=== PATIENT | male | born 1965 | race Hispanic/Latino ===

== ENCOUNTER 2022-01-22 20:10 | Emergency (ER) | payer MEDICARE ==
[2022-01-22] MEDS ORDERED: SODIUM CHLORIDE 0.9% 500 ML 500 ML IV ONE (20:34)
[2022-01-22] MEDS ORDERED: MORPHINE 4 MG/1 ML INJ IV ONE (20:34)
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
[2022-01-22 21:13] LABS: Basophils % (Auto) 0.4 % (0.0-1.8); Eosinophils # (Auto) 0.1 K/mm3 (0.0-0.4); Eosinophils % (Auto) 1.8 % (0.0-4.3); Hematocrit 43.8 % (35.5-45.6); Hemoglobin 14.6 gm/dl (11.8-15.2); Lymphocytes % (Auto) 24.1 % (13.4-35.0); Mean Corpuscular HGB Conc 33 % (32-34); Mean Corpuscular Volume 89 fl (84-94); Monocytes # (Auto) 0.7 K/mm3 (0.0-0.8); Monocytes % (Auto) 8.9 % (0.0-7.3); Platelet Count 424 K/mm3 (140-440); Red Blood Count 4.94 M/mm3 (3.65-5.03); Red Cell Distribution Width 16.3 % (13.2-15.2)
[2022-01-22 21:29] LABS: INR 0.98 (0.87-1.13)
[2022-01-22 21:34] LABS: Alanine Aminotransferase 12 units/L (7-56); Albumin 4.6 g/dL (3.9-5); Blood Urea Nitrogen 15 mg/dL (9-20); Calcium 10.6 mg/dL (8.4-10.2); Hemolysis Index 8
[2022-01-22 21:58] LABS: BUN/Creatinine Ratio 21
[2022-01-22] MEDS ORDERED: MORPHINE 2 MG/1 ML INJ IV ONE (22:32)
--- NOTE | 2022-01-22 22:36 | Emergency Department Report ---
ED Chest Pain HPI - General Chief Complaint: Chest Pain Stated Complaint: CHEST PAIN Time Seen by Provider: 01/22/22 20:26 Source: EMS Mode of arrival: Stretcher Limitations: Physical Limitation - History of Present Illness Initial Comments: Pt came in from [facility] with complain of chest pain 06/30, was given 2 doses of nitro, EMS gave ASA 324mg po. MD Complaint: chest pain -: hour(s) Pain Location: left chest Pain Radiation: none Severity scale (0 -10): 8 Quality: aching Consistency: intermittent Improves With: nothing re: nausea - Related Data On Oral Contraceptives: No Allergies Allergy/AdvReac Type Severity Reaction Status Date / Time hydrocodone Allergy Unknown Verified 01/22/22 20:21 tramadol Allergy Unknown Verified 01/22/22 20:21 Heart Score - HEART Score History: Slightly suspicious EKG: Non-specific Age: 45-65 Risk factors: > 3 risk factors or hx of atherosclerotic disease Troponin: < normal limit HEART Score: 4 - EKG Read Time Time EKG Completed: 20:30 EKG Read Time: 20:30 ED Review of Systems ROS: Stated complaint: CHEST PAIN Other details as noted in HPI Constitutional: denies: chills, fever Eyes: denies: eye pain, eye discharge, vision change ENT: denies: ear pain, throat pain Respiratory: denies: cough, shortness of breath, wheezing Cardiovascular: denies: chest pain, palpitations Endocrine: no symptoms reported Gastrointestinal: denies: abdominal pain, nausea, diarrhea Genitourinary: denies: urgency, dysuria Musculoskeletal: denies: back pain, joint swelling, arthralgia Skin: denies: rash, lesions Neurological: denies: headache, weakness, paresthesias Psychiatric: denies: anxiety, depression Hematological/Lymphatic: denies: easy bleeding, easy bruising ED Past Medical Hx - Past Medical History Previous Medical History?: Yes Hx Hypertension: Yes Hx CVA: Yes (LEFT SIDE DEFICIT) Hx Heart Attack/AMI: Yes (2018, WITH STENTS 2) Hx GERD: Yes Hx Psychiatric Treatment: Yes (BIPOLAR) Hx Asthma: Yes Hx COPD: Yes - Surgical History Past Surgical History?: Yes Additional Surgical History: WITH 2 STENTS - Social History Smoking Status: Former Smoker Substance Use Type: None ED Physical Exam - General Limitations: Physical Limitation General appearance: alert, in no apparent distress - Head Head exam: Present: atraumatic, normocephalic - Eye Eye exam: Present: normal appearance - ENT ENT exam: Present: mucous membranes moist - Neck Neck exam: Present: normal inspection - Respiratory Respiratory exam: Present: normal lung sounds bilaterally. Absent: respiratory distress - Cardiovascular Cardiovascular Exam: Present: regular rate, normal rhythm. Absent: systolic murmur, diastolic murmur, rubs, gallop - GI/Abdominal GI/Abdominal exam: Present: soft, normal bowel sounds - Rectal Rectal exam: Present: deferred - Extremities Exam Extremities exam: Present: normal inspection - Back Exam Back exam: Present: normal inspection - Neurological Exam Neurological exam: Present: alert, oriented X3 - Psychiatric Psychiatric exam: Present: normal affect, normal mood - Skin Skin exam: Present: warm, dry, intact, normal color. Absent: rash ED Course Vital Signs 01/22/22 01/22/22 01/22/22 20:24 20:34 20:46 Temperature Pulse Rate 76 71 Respiratory 18 14 Rate Blood Pressure 133/84 Blood Pressure 114/70 [Left] O2 Sat by Pulse 98 71 L 99 Oximetry 01/22/22 01/22/22 01/22/22 20:47 21:00 21:02 Temperature 97.8 F Pulse Rate 73 65 Respiratory 16 18 Rate Blood Pressure 127/80 Blood Pressure 127/80 [Left] O2 Sat by Pulse 98 99 99 Oximetry 01/22/22 01/22/22 01/22/22 21:05 21:16 21:30 Temperature Pulse Rate 59 L 58 L Respiratory 18 13 13 Rate Blood Pressure 127/80 132/80 Blood Pressure [Left] O2 Sat by Pulse 100 100 Oximetry - Reevaluation(s) Reevaluation #1: 01/22/22 22:33 work up neg vss , pain controlled pt thinks itis anxiety and wants more morphine ED Medical Decision Making - Lab Data Result diagrams: 01/22/22 20:45 01/22/22 20:45 - EKG Data -: EKG Interpreted by Me EKG shows normal: sinus rhythm Rate: normal - EKG Data Interpretation: other (lateral infacrts old ) Critical care attestation.: If time is entered above; I have spent that time in minutes in the direct care of this critically ill patient, excluding procedure time. ED Disposition Clinical Impression: Chest pain Disposition: 01 HOME / SELF CARE / HOMELESS Is pt being admited?: No Does the pt Need Aspirin: No Condition: Stable Instructions: Nonspecific Chest Pain, Adult
[2022-01-23 11:55] VITALS: BP 118/63
--- NOTE | 2022-01-24 11:48 | Electrocardiograph Report ---
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
== END 2022-01-23 12:06 ==
LOC: ED 20:10
DX: R07.89 Other chest pain (principal); I10 Essential (primary) hypertension; K21.9 Gastro-esophageal reflux disease without esophagitis; J44.9 Chronic obstructive pulmonary disease, unspecified; Z87.891 Personal history of nicotine dependence; Z88.6 Allergy status to analgesic agent; Z88.8 Allergy status to other drugs, medicaments and biological substances; Z79.899 Other long term (current) drug therapy
CPT/HCPCS: 36415; 71045; 80053; 82550; 83690; 84484; 85025; 85610; 93005; 93010; 96361; 96374; 96376; 99284; J2270; J7040

== ENCOUNTER 2022-02-04 15:45 | Emergency (ER) | payer MEDICARE ==
[2022-02-04] MEDS ORDERED: HALOPERIDOL LACTATE 5 MG/1 ML INJ IM PRN (16:45)
[2022-02-04] MEDS ORDERED: TETANUS,DIPH,PERTUSS(ACELL) VACCINE 0.5 ML SYRINGE IM ONE (16:45)
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
[2022-02-04] MEDS: LORazepam 2 MG/ML VIAL IM PRN (17:44)
[2022-02-04 18:16] LABS: Hematocrit 34.9 % (35.5-45.6); Hemoglobin 12.1 gm/dl (11.8-15.2); Mean Corpuscular HGB Conc 35 % (32-34); Mean Corpuscular Volume 89 fl (84-94); Platelet Count 441 K/mm3 (140-440); Red Blood Count 3.92 M/mm3 (3.65-5.03); Red Cell Distribution Width 16.5 % (13.2-15.2)
[2022-02-04 18:26] LABS: INR 0.88 (0.87-1.13)
[2022-02-04 18:39] LABS: Alanine Aminotransferase 37 units/L (7-56); Blood Urea Nitrogen 13 mg/dL (9-20); Calcium 9.5 mg/dL (8.4-10.2); Hemolysis Index 3
[2022-02-04 18:41] LABS: BUN/Creatinine Ratio 22
[2022-02-04] MEDS ORDERED: ACETAMINOPHEN 325 MG TAB PO PRN (19:35)
[2022-02-04] MEDS ORDERED: ONDANSETRON 4 MG ODT TAB PO PRN (19:35)
[2022-02-04] MEDS ORDERED: PANTOPRAZOLE 20 MG TAB PO PRN (19:35)
[2022-02-05 07:59] LABS: Amphetamine Screen,Urine Negative; Benzodiazepines Screen,Urine Negative; Cannabinoid Screen,Urine Negative; Cocaine Screen,Urine Negative; Methadone Screen,Urine Negative; Opiate Screen,Urine Negative
[2022-02-05 08:06] LABS: Bilirubin,Urine NEG (Negative); Blood,Urine NEG (Negative); Color,Urine Yellow (Yellow); Mucus,Urine 1+ /HPF; Protein,Urine <15 mg/dL mg/dL (Negative); Urobilinogen,Urine < 2.0 mg/dL (<2.0)
[2022-02-05 08:53] VITALS: BP 143/89
[2022-02-05] MEDS: LORazepam 2 MG/ML VIAL IM PRN (10:00)
--- NOTE | 2022-02-05 11:23 | Consultation ---
History of Present Illness - Reason for Consult Consult date: 02/05/22 Reason for consult: Suicidal attempt - History of Present Psychiatric Illness ED Note: The patient is a 56-year-old gentleman. His primary care doctor is Dr. Syed. His past medical history includes atherosclerotic heart disease, weakness, Hernandez's esophagus, COPD, history of stroke with left-sided hemiplegia, protein calorie malnutrition, hypertension, schizophrenia, bipolar, obsessive-compulsive disorder, and GERD, as well as hyperlipidemia. The patient presents to the ER today with an EMS articulated complaint of probable drug- seeking and suicide attempt. As per EMS, the patient inflicted a superficial wound to the volar aspect of [facility] left distal [facility]. 911 was thus activated. EMS reports stable vital signs in the field, and that the patient endorsed no complaints in the field per se, but made multiple requests for pain medication, and intravenous Ativan.The patient was also seen for chest pain at this hospital a few weeks ago. In the emergency room, the patient complains of constant anterior nonrating not exertional chest pain, which is not associate with vomiting, diaphoresis or exertional shortness of breath. He is requesting intravenous Ativan. He denies headache, neck pain, abdominal pain, vomiting, diaphoresis, posterior leg pain or leg swelling. He will not comment on whether or not he is homicidal at this time. The patient is a 56 year old male with history of schizophrenia, bipolar, obsessive-compulsive disorder who presents to the ED with suicidal attempt. In my interview with the patient, he is depressed and anxious. The patient reports that he tried to cut his wrist last night " my adrenaline keeps going so bad and I can't be still." When asked about recent stressors, he states he was in the process of moving to another nursing home and that his mother was supposed to be visiting. The patient presents as med seeking asking for Ativan injection. He denies any current suicidal/homicidal ideation and denies hallucinations. PAST PSYCHIATRIC HISTORY Diagnoses: schizophrenia, Bipolar, OCD Suicide attempts or Self-harm behavior: Yes Prior psychiatric hospitalizations: Yes Substance Abuse history: Alcohol Previous psychiatric medications tried: Seroquel, Thibodaux Outpatient treatment: Unknown SOCIAL HISTORY Marital Status: Single Living Arrangements: nursing home Employment Status: Unemployed Access to guns/weapons: Denied Education: some college History of Abuse: Denied Legal History: None reported REVIEW OF SYSTEMS Constitutional: Negative for weight loss ENT: Negative for stridor Respiratory: Negative for cough or hemoptysis All other systems reviewed and are negative MENTAL STATUS EXAMINATION General Appearance and Behavior: Age appropriate, dressed appropriately, anxious and cooperative Cooperation: cooperative Psychomotor Behavior: psychomotor normal Mood: Depressed, anxious Affect and affective range: Congruent with states mood Thought Process: goal oriented Thought Content: Reality oriented Speech: Normal volume, Regular rate and rhythm, Intellectual Functioning: Average Suicidal Ideation: Denies Homicidal Ideation: Denies Hallucinations: Denies Delusions: None elicited Impulse Control: Unimpaired Insight and Judgment: limited insight and judgment, Memory: Normal Attention: divided Orientation: Alert, oriented Assessment and Plan (1)Bipolar (2) Treatment plan 1013 Continue previous prescribed meds Start Seroquel 100mg po BID Start Th[place]od[place] 300mg po BID Start Vistaril 25mg po TID Risks, benefits and alternatives of medications discussed with the patient, questions answered and consent obtained from patient. PSYCHOTHERAPY: Supportive psychotherapy provided MEDICAL: Per primary team DELIRIUM PRECAUTIONS: Please re-orient patient frequently, keep lights on during the day, and minimize benzodiazepines and opiates as these medications could worsen patient's confusion. 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 Will follow. Thank you for the consult. Please contact with any questions and/or concerns. Case staffed with Dr. Toledo Medications and Allergies Allergies Allergy/AdvReac Type Severity Reaction Status Date / Time hydrocodone Allergy Unknown Verified 01/23/22 01:15 tramadol Allergy Unknown Verified 01/23/22 01:15 Active Meds: Active Medications Acetaminophen (Acetaminophen 325 Mg Tab) 650 mg PO Q6HR PRN PRN Reason: PAIN Haloperidol Lactate (Haloperidol Lactate 5 Mg/1 Ml Inj) 5 mg IM Q6HR PRN PRN Reason: Agitation Last Admin: 02/04/22 17:41 Dose: 5 mg Lorazepam (Lorazepam 2 Mg/Ml Vial) 2 mg IM Q4HR PRN PRN Reason: Agitation Last Admin: 02/05/22 10:00 Dose: 2 mg Ondansetron HCl (Ondansetron 4 Mg Odt Tab) 4 mg PO Q6HR PRN PRN Reason: Nausea Pantoprazole Sodium (Pantoprazole 20 Mg Tab) 20 mg PO BID PRN PRN Reason: Dyspepsia Mental Status Exam - Vital signs Last Vital Signs Temp 97.2 F L 02/05/22 08:52 Pulse 99 H 02/05/22 08:52 Resp 20 02/05/22 08:52 BP 143/89 02/05/22 08:52 Pulse Ox 97 02/05/22 08:53 Results Result Diagrams: 02/04/22 18:00 02/04/22 18:00 Abnormal lab results 02/04/22 02/04/22 02/04/22 Range/Units 18:00 18:00 18:00 Hct 34.9 L (35.5-45.6) % MCHC 35 H (32-34) % RDW 16.5 H (13.2-15.2) % Plt Count 441 H (140-440) K/mm3 Creatinine 0.6 L (0.8-1.3) mg/dL Alkaline Phosphatase 168 H (35-129) units/L Salicylates < 0.3 L (2.8-20.0) mg/dL Acetaminophen (10.0-30.0) ug/mL 02/04/22 Range/Units 18:00 Hct (35.5-45.6) % MCHC (32-34) % RDW (13.2-15.2) % Plt Count (140-440) K/mm3 Creatinine (0.8-1.3) mg/dL Alkaline Phosphatase (35-129) units/L Salicylates (2.8-20.0) mg/dL Acetaminophen 5.0 L (10.0-30.0) ug/mL All other labs normal.
[2022-02-05] MEDS ORDERED: QUEtiapine 100 MG TAB PO SCH (12:00)
[2022-02-05] MEDS ORDERED: LITHIUM CARBONATE 300 MG CAP PO SCH (12:00)
--- NOTE | 2022-02-05 12:06 | Event Note ---
Date: 02/05/22 medically cleared vss , no distress accepted to inpatient psych
[2022-02-05] MEDS ORDERED: hydrOXYzine PAMOATE 25 MG CAP PO SCH (14:00)
--- NOTE | 2022-02-05 19:25 | Electrocardiograph Report ---
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
--- NOTE | 2022-02-08 08:27 | Electrocardiograph Report ---
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
== END 2022-02-05 14:20 ==
LOC: ED 15:45
DX: S60.812A Abrasion of left wrist, initial encounter (principal); R07.9 Chest pain, unspecified; F20.9 Schizophrenia, unspecified; Z13.30 Encounter for screening examination for mental health and behavioral disorders, unspecified; Z20.822 Contact with and (suspected) exposure to COVID-19; I10 Essential (primary) hypertension; Z88.5 Allergy status to narcotic agent; X58.XXXA Exposure to other specified factors, initial encounter; Y93.89 Activity, other specified; Y92.89 Other specified places as the place of occurrence of the external cause; Y99.8 Other external cause status
CPT/HCPCS: 36415; 71046; 80053; 80307; 81001; 84484; 85027; 85610; 90471; 90715; 93005; 96372; 99285; J1630; J2060; U0003; 80320; G0480

== ENCOUNTER 2022-02-05 17:00 | Emergency (ER) | payer MEDICARE ==
--- NOTE | 2022-02-05 18:54 | Emergency Department Report ---
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 Denies any SI or HI today Place: home Alledged Intoxication: No Compliant with Home Medications: No Treatments Prior to Arrival: none Allergies/Adverse reactions: Allergies Allergy/AdvReac Type Severity Reaction Status Date / Time hydrocodone Allergy Unknown Verified 02/05/22 11:39 tramadol Allergy Unknown Verified 02/05/22 11:39 ED Review of Systems ROS: Stated complaint: MH Other details as noted in HPI Constitutional: denies: chills, fever Eyes: denies: eye pain, eye discharge, vision change ENT: denies: ear pain, throat pain Respiratory: denies: cough, shortness of breath, wheezing Cardiovascular: denies: chest pain, palpitations Endocrine: no symptoms reported Gastrointestinal: denies: abdominal pain, nausea, diarrhea Genitourinary: denies: urgency, dysuria Musculoskeletal: denies: back pain, joint swelling, arthralgia Skin: denies: rash, lesions Neurological: denies: headache, weakness, paresthesias Psychiatric: denies: anxiety, depression Hematological/Lymphatic: denies: easy bleeding, easy bruising ED Past Medical Hx - Past Medical History Hx Hypertension: Yes Hx CVA: Yes (LEFT SIDE DEFICIT) Hx Heart Attack/AMI: Yes (2018, WITH STENTS 2) Hx GERD: Yes Hx Psychiatric Treatment: Yes ([facility]) Hx Asthma: Yes Hx COPD: Yes - Surgical History Additional Surgical History: WITH 2 STENTS - Social History Smoking Status: Former Smoker Substance Use Type: None ED Physical Exam - General General appearance: alert, in no apparent distress - Head Head exam: Present: atraumatic, normocephalic - Eye Eye exam: Present: normal appearance - ENT ENT exam: Present: mucous membranes moist - Neck Neck exam: Present: normal inspection - Respiratory Respiratory exam: Present: normal lung sounds bilaterally. Absent: respiratory distress - Cardiovascular Cardiovascular Exam: Present: regular rate, normal rhythm. Absent: systolic murmur, diastolic murmur, rubs, gallop - GI/Abdominal GI/Abdominal exam: Present: soft, normal bowel sounds - Rectal Rectal exam: Present: deferred - Extremities Exam Extremities exam: Present: normal inspection - Back Exam Back exam: Present: normal inspection - Neurological Exam Neurological exam: Present: alert, oriented X3 - Psychiatric Psychiatric exam: Absent: depressed, homicidal ideation, suicidal ideation - Skin Skin exam: Present: warm, dry, intact, normal color. Absent: rash ED Medical Decision Making - Medical Decision Making pt was awake and alert vss, no distress, [facility] back to his [facility] ED Disposition Clinical Impression: Medical clearance for psychiatric admission Disposition: HOME / SELF CARE / HOMELESS Is pt being admited?: No Does the pt Need Aspirin: No Condition: Stable Instructions: Medical Screening Exam
[2022-02-05 19:52] LABS: Basophils % (Auto) 0.3 % (0.0-1.8); Eosinophils # (Auto) 0.1 K/mm3 (0.0-0.4); Eosinophils % (Auto) 0.9 % (0.0-4.3); Hemoglobin 13.1 gm/dl (11.8-15.2); Lymphocytes # (Auto) 1.9 K/mm3 (1.2-5.4); Lymphocytes % (Auto) 17.7 % (13.4-35.0); Mean Corpuscular HGB Conc 36 % (32-34); Mean Corpuscular Volume 87 fl (84-94); Monocytes # (Auto) 0.9 K/mm3 (0.0-0.8); Monocytes % (Auto) 8.8 % (0.0-7.3); Platelet Count 466 K/mm3 (140-440); Red Blood Count 4.25 M/mm3 (3.65-5.03); Red Cell Distribution Width 16.4 % (13.2-15.2)
[2022-02-05 20:07] LABS: BUN/Creatinine Ratio 23; Blood Urea Nitrogen 14 mg/dL (9-20); Calcium 9.6 mg/dL (8.4-10.2); Hemolysis Index 4
[2022-02-06 13:48] VITALS: BP 138/94
== END 2022-02-06 13:47 | disposition home or self-care (01) ==
LOC: ED 17:00
DX: Z04.6 Encounter for general psychiatric examination, requested by authority (principal); I10 Essential (primary) hypertension; K21.9 Gastro-esophageal reflux disease without esophagitis; J44.9 Chronic obstructive pulmonary disease, unspecified; F31.9 Bipolar disorder, unspecified; Z88.6 Allergy status to analgesic agent; Z88.5 Allergy status to narcotic agent; Z79.899 Other long term (current) drug therapy
CPT/HCPCS: 36415; 80048; 80320; 85025; 99284; G0480